=== PATIENT | female | born 1935 | race Hispanic/Latino ===

== ENCOUNTER 2017-07-10 06:13 | Emergency (ER) | payer MEDICARE ==
[~2017-07-10 06:13] MED LIST: ENAL2.5T PO; ENOX40DI8 SQ; GABA300S PO; GLIP5TAB97 PO; IBUP-2070 PO; LEVO500T2 PO; METO-408 PO; SOLI10TA PO; TRAM50TA4 PO
[2017-07-10] MEDS ORDERED: KETOROLAC TROMETHAMINE 30MG/ML ONE (06:59)
[2017-07-10] MEDS ORDERED: DIAZEPAM 5 MG TABLET ONE (07:00)
== END 2017-07-10 07:22 | disposition home or self-care (01) ==
LOC: EDH 06:13
DX: M79.604 Pain in right leg (principal); M79.605 Pain in left leg; E11.9 Type 2 diabetes mellitus without complications; I10 Essential (primary) hypertension; Z98.890 Other specified postprocedural states
CPT/HCPCS: 96372; 99283; J1885

== ENCOUNTER 2023-07-24 20:25 | Emergency (ER) | payer MEDICARE ==
[~2023-07-24] VITALS: Ht 154.9 cm; Wt 81.6 kg
[~2023-07-24 20:25] MED LIST changes: -ENAL2.5T PO; +ENAL2.5T71 PO; -GABA300S PO; +GABA300S3 PO
[2023-07-24 20:32] VITALS: BP 152/65; PULSE 64; RESP 20; O2SAT 98
[2023-07-24] MEDS ORDERED: MELO10CA3 PO (21:08)
== END 2023-07-24 21:20 | disposition home or self-care (01) ==
LOC: EDH 20:25
DX: S80.01XA Contusion of right knee, initial encounter (principal); I10 Essential (primary) hypertension; E11.9 Type 2 diabetes mellitus without complications; E78.00 Pure hypercholesterolemia, unspecified; Z79.899 Other long term (current) drug therapy; Z79.84 Long term (current) use of oral hypoglycemic drugs; Z98.890 Other specified postprocedural states; W01.0XXA Fall on same level from slipping, tripping and stumbling without subsequent striking against object, initial encounter; Y93.89 Activity, other specified; Y92.091 Bathroom in other non-institutional residence as the place of occurrence of the external cause; Y99.8 Other external cause status
CPT/HCPCS: 73502; 73562

== ENCOUNTER 2024-10-17 18:51 | Emergency (ER) | payer OTHER, MEDICAID ==
[~2024-10-17] VITALS: Ht 152.4 cm; Wt 86.2 kg
[~2024-10-17 18:51] MED LIST changes: +MELO10CA3 PO
--- NOTE | 2024-10-17 19:15 | NUR ---
OTIFIEDPT ARRIVED TO ER RAISED BUMPS TO LEFT SCALP AND FACE POSSIBLE SHINGLES . HEMP CREAM FROM [place] APPLIED TO REDUCE PAIN NOT WORKING BUT STILL IN PLACE OBSTRUCTING VIEW OF RAISED BUMPS TO THE FACE, OUTBREWAK STARTED LAST THURSDAY
--- NOTE | 2024-10-17 20:16 | ERN ---
ED Note History of Present Illness Stated Complaint: FACIAL ALLERGIC REACTION Chief Complaint: Allergic Reaction Time Seen by MD: 20:12 Dictation: This is an 88-year-old female who began experiencing severe facial pain 3 days prior to the presentation on the left side. Apparently 1 of her family members had a cream from [place] that she applied for the pain.(the ingredients of the cream appeared to be a herbal and also naproxen and diclofenac). She developed diffuse vesicular rash all across the left face starting from below the ear down to the jaw as well as similar lesions extending into the scalp as well as upper neck area. Very erythematous and some on the face appeared to be in different phases of healing She also reported frontal headache. Temperature 101 pulse 98 respirations 16 blood pressure 159/65 with a pulse oximetry of 97% on room air Allergies: Coded Allergies: No Known Drug Allergies (Verified Allergy, 01/09/12) Home Meds Active Scripts Capsaicin (Capsaicin) 0.1 % Cream..g., 1 APPL TP TID, #30 GM 0 Refills Prov:SINA ADORNO MD 10/17/24 Oxycodone HCl (Oxycodone HCl) 5 Mg Capsule, 1 CAP PO QIDP PRN for pain for 3 Days, #12 CAP 0 Refills Prov:SINA ADORNO MD 10/17/24 Gabapentin (Gabapentin) 400 Mg Capsule, 1 CAP PO TID for 10 Days, #30 CAP 0 Refills Prov:SINA ADORNO MD 10/17/24 Valacyclovir HCl (Valacyclovir) 1,000 Mg Tablet, 1 TAB PO TID for 7 Days, #21 TAB 0 Refills Prov:SINA ADORNO MD 10/17/24 Prednisone (Prednisone) 50 Mg Tablet, 60 MG PO DAILY for 7 Days, #7 TAB 0 Refills Prov:SINA ADORNO MD 10/17/24 Meloxicam, Submicronized (Meloxicam) 10 Mg Capsule, 10 MG PO DAILY, #30 CAP Prov:SADIQ MONTALVO MD 07/24/23 Levofloxacin (Levaquin) 500 Mg Tablet, 500 MG PO DAILYLUNCH for UTI, #7 TAB 0 Refills Prov:MANUEL MARSHALL MD 07/15/14 Enoxaparin Sodium (Lovenox) 40 Mg/0.4 Ml Disp.syrin, 40 MG SQ DAILY, #15 DIS.SYR 0 Refills Prov:MANUEL MARSHALL MD 07/15/14 Reported Medications Gabapentin (Gabapentin) 300 Mg/6 Ml Solution, 300 MG PO TID, ML 07/13/14 Ibuprofen (Ibuprofen) 600 Mg Tablet, 600 MG PO TIDMEALS PRN for PAIN, TAB 07/13/14 Tramadol Hcl (Tramadol HCl) 50 Mg Tablet, 50 MG PO TID PRN for PAIN, TAB 07/13/14 Enalapril Maleate (Enalapril Maleate) 2.5 Mg Tablet, 2.5 MG PO DAILY, TAB 07/13/14 Glipizide (Glipizide Xl) 5 Mg Tab.er.24, 5 MG PO DAILY 07/13/14 Solifenacin Succinate (Vesicare) 10 Mg Tablet, 10 MG PO DAILY, TAB 07/13/14 Metoprolol Succinate (Metoprolol Succinate) 25 Mg Tab.er.24h, 25 MG PO DAILY, TAB 07/13/14 Past Medical History Past Medical History: Cancer, Diabetes-Type II, High Cholesterol, Hypertension Additional Past Medical Hx: BREAST CA Surgical History: Other Surgical History Other: L MASTECTOMY Social History: Negative History: Not Applicable RN Note Reviewed/Agreed w/PFSH: Yes Review of System Dictation Constitutional: Negative for fever,chills, and weight loss Eyes: Negative for injury, pain,redness, and discharge ENT: Negative for injury,pain or swelling Cardiovascular: Negative for chest pain, palpitations, and edema Respiratory: Negative for shortness of breath, cough, and wheezing, Abdomen/GI: Negative for abdominal pain, nausea, vomiting, diarrhea, and constipation Back: Negative for injury and pain : Negative for injury, bleeding and discharge MS/Extremity: Negative for injury and deformity Skin: Positive for rash on the left side of the face neck and scalp Neuro: Negative for headache, weakness, numbness, tingling, and seizure Psych: Negative for suicide ideation, homicidal ideation, and hallucinations Initial Vital Sign VS Vital Signs Date Time Temp Pulse Resp B/P (MAP) Pulse Ox O2 Delivery O2 Flow Rate FiO2 10/17/24 18:52 100.9 98 16 159/65 97 Room Air 0 10/17/24 19:10 21 Physical Exam Dictation General: awake, alert, NAD morbidly obese elderly lady in a wheelchair Head/Face: Normocephalic, atraumatic Eyes: PERRL, EOMI, vision at baseline ENT: oral cavity clear, TMs clear, no signs of infection Neck: Trachea midline, supple, no nuchal rigidity Cardiovascular: RRR, normal S1/S2, No MRGs, no JVD Respiratory: CTAB, no respiratory distress, No rales or wheezes Abdomen: Soft, non-tender, non-distended, normal bowel sounds, no guarding or rebound. Skin: Positive for rash, left side of the face below the level of the ear and extending to scalp in the parietal area occipital area as well as neck. It appears to be in dermatomal distribution, vesicular rash fresh vesicles in the neck area but scabbing on the face MS/Extremity: Pulses equal, no cyanosis, neurovascular intact, FROM Neuro: COAx4, GCS 15, strength 5/5, CN 2-12 intact, normal cerebellar exam, normal gait, Psych: Normal behavior, mood, and affect normal Extremities-trace edema without any palpable cords, Homans sign is negative Results (Laboratory/Radiology) Labs Reviewed?: Yes ED Course ED Course Orders Procedure Category Date Status Time Methylprednisolone PHA 10/17/24 Complete Succ 40mg (Solu-Medro 20:30 Morphine 4mg Syg PHA 10/17/24 Complete (Morphine 4mg Syg) 20:30 Valacyclovir Hcl PHA 10/17/24 Complete (Valtrex) 20:30 Gabapentin 300 Mg Cap PHA 10/17/24 Complete (Neurontin 300 Mg 20:30 Lidocaine Hcl 5% Oint PHA 10/17/24 Complete 35.44gm (Lidocaine 21:00 Current Medications Medications (Trade) Dose Ordered Sig/Jaiden Route PRN Reason Start Time Stop Time Status Last Admin Dose Admin Gabapentin (NEURontin 300 MG CAP) 300 mg ONCE PO 10/17/24 20:30 10/17/24 21:26 DC 10/17/24 20:30 Lidocaine HCl (Lidocaine HCl 5% Oint 50gm) 1 APPLICATION ONCE ONCE TP 10/17/24 21:00 10/17/24 21:01 DC 10/17/24 20:57 Methylprednisolone Sodium Succinate (Solu-medROL 40MG) 60 mg ONCE ONCE IM 10/17/24 20:30 10/17/24 20:31 DC 10/17/24 20:30 Morphine Sulfate (morPHINE 4MG SYG) 4 mg ONCE ONCE IM 10/17/24 20:30 10/17/24 20:31 DC 10/17/24 20:31 Valacyclovir HCl (ValtREX) 1,000 mg ONCE ONCE PO 10/17/24 20:30 10/17/24 20:31 DC 10/17/24 20:30 Vital Signs Date Time Temp Pulse Resp B/P (MAP) Pulse Ox O2 Delivery O2 Flow Rate FiO2 10/17/24 21:19 98.6 89 16 158/62 98 Room Air* 0 10/17/24 19:10 100.9 95 16 155/65 98 Room Air* 0 10/17/24 18:52 100.9 98 16 159/65 97 Room Air 0 I had a very long discussion with the patient and her daughter at bedside and explained to them that the rash which is vesicular is along the dermatomal distribution and very much is consistent with herpes zoster. We will administer medications according to the patient's complaint. Once the results are available, will review and personally interpreted the labs to rule out any acute life-threatening emergency the trach require immediate intervention and treatment. I will then re-evaluate the patient after treatment and diagnostic exams have return to determine whether the patient requires any further testing, can safely be discharged home or need further admission to hospital for additional treatment and evaluation. She felt very improved in terms of pain and the burning and she will be discharged to home on antivirals and pain medications. Medical Decision Making MDM Differential diagnosis: Allergic reaction to the cream, herpes zoster, herpes simplex, impetigo Rationale: Tests considered and ordered secondary to shared decision making include: Previous outside records reviewed: Old ER visits. Risk of complication and/or morbidity or mortality of patient management: None Medications-Per medication reconciliation Need for hospitalization: Patient does not meet criteria for hospitalization. Need for emergency major/minor surgery: No There are no social concerns with this patient. Prescription drug management Prescriptions will include symptomatic care Patient's prior external medical records from other ER visits were reviewed by me as indicated. Prior testing and results from previous visits were reviewed. Prior tests were taken into account with medical decision making and resource utilization, independent historian/historians were used to obtain complete medical history. I independently interpreted the test that were performed, results were reviewed by me and considered findings on radiology if ordered. Medical management and examination interpretation discussions were had by me with other qualified healthcare professionals as indicated for the patient's care. Problem List Problem List: (1) Herpes zoster virus infection of face and ear nerves (2) Herpes zoster involving cervical dermatome DX & DISP Disposition: Discharge Departure Impression: Primary Impression: Herpes zoster virus infection of face and ear nerves Additional Impression: Herpes zoster involving cervical dermatome Condition: Stable Scripts Capsaicin (Capsaicin) 0.1 % Cream..g. 1 APPL TP TID, #30 GM 0 Refills Prov: SINA ADORNO MD 10/17/24 Oxycodone HCl (Oxycodone HCl) 5 Mg Capsule 1 CAP PO QIDP PRN for pain for 3 Days, #12 CAP 0 Refills Prov: SINA ADORNO MD 10/17/24 Gabapentin (Gabapentin) 400 Mg Capsule 1 CAP PO TID for 10 Days, #30 CAP 0 Refills Prov: SINA ADORNO MD 10/17/24 Valacyclovir HCl (Valacyclovir) 1,000 Mg Tablet 1 TAB PO TID for 7 Days, #21 TAB 0 Refills Prov: SINA ADORNO MD 10/17/24 Prednisone (Prednisone) 50 Mg Tablet 60 MG PO DAILY for 7 Days, #7 TAB 0 Refills Prov: SINA ADORNO MD 10/17/24 Additional Instructions: Patient and the caregiver have been informed of all the diagnostic tests and the imaging conducted during the today's visit to the emergency room and has verbalized understanding of the results I have personally reviewed and interpreted all diagnostic exams performed here in the ER today as well as the vital signs documented by the nursing staff. The patient is now being discharged to home and should follow up with the primary care physician or the specialist as directed by the ER staff. Follow-up with primary care provider in 1 to 2 days. Take medications as directed here in the emergency room. Okay to continue home medications unless otherwise discussed during your visit in the emergency room today. Return to your nearest emergency room if symptoms worsen or if there is no improvement. Call 911 if you need immediate assistance. Take Tylenol or Motrin [id number] as needed and if no contraindications are present. Increase oral hydration. A wound culture or urine culture was ordered here in the emergency room department please follow-up with primary care provider and advise them to get repeat ports from our facility. If you had any Denny wrap/splints that were applied here, please do not remove them until you see your primary care or specialty. Referrals: DEE DEE COOMBS (PCP) SINA ADORNO MD Oct 17, 2024 20:16
[2024-10-17] MEDS: Solu-medROL 40MG VIAL IM ONE (20:30)
[2024-10-17] MEDS: GABAPENTIN 300 MG CAPSULE PO SCH (20:30)
[2024-10-17] MEDS ORDERED: PRED50TA2 PO (20:40)
[2024-10-17] MEDS ORDERED: VALA100031 PO (20:40)
[2024-10-17] MEDS ORDERED: GABA-534 PO (20:40)
[2024-10-17] MEDS ORDERED: OXYC5CAP22 PO (20:40)
[2024-10-17] MEDS ORDERED: CAPS42.514 TP (20:40)
[2024-10-17] MEDS: [UNRECOGNIZED DRUG - OTHER] TP ONE (20:57)
[2024-10-17] MEDS: APPL TP ONE (20:57)
[2024-10-17] MEDS: LIDOCAINE HCL TP ONE (20:57)
[2024-10-17 21:19] VITALS: BP 158/62; PULSE 89; RESP 16; TEMP 98.6; O2SAT 98
== END 2024-10-17 21:26 | disposition home or self-care (01) ==
LOC: EDH 18:51
DX: B02.8 Zoster with other complications (principal); E11.9 Type 2 diabetes mellitus without complications; E78.00 Pure hypercholesterolemia, unspecified; I10 Essential (primary) hypertension; Z85.3 Personal history of malignant neoplasm of breast; Z79.899 Other long term (current) drug therapy; Z79.52 Long term (current) use of systemic steroids
CPT/HCPCS: 99284; 96372 ×2; J2919; J2270